=== PATIENT | male | born 1970 | race Caucasian/White ===

== ENCOUNTER 2024-06-17 18:02 | Emergency (ER) | payer BC, SELFPAY ==
[2024-06-17 18:11] VITALS: BP 92/50; BP 99/62; PULSE 82; PULSE 85; RESP 18; TEMP 36.9; O2SAT 100; O2SAT 99; BMI 19.0
[2024-06-17 18:17] VITALS: BP 92/50; PULSE 80; RESP 16; TEMP 36.9; O2SAT 98
--- NOTE | 2024-06-17 18:25 | ECG_ITS ---
Test Reason : HYPOTENSION Blood Pressure : / mmHG Vent. Rate : 076 BPM Atrial Rate : 076 BPM P-R Int : 138 ms QRS Dur : 086 ms QT Int : 406 ms P-R-T Axes : 077 074 080 degrees QTc Int : 456 ms Normal sinus rhythm Nonspecific ST abnormality Abnormal ECG No previous ECGs available Referred By: Isabelle White Electronically Signed By:Jean Avelar
--- NOTE | 2024-06-17 18:27 | PC.NURSE ---
[facility] potassium, mag, toradol and nictoine patch but due to low BP sent him here. EMS gave 300 mL NS via 18G in right forearm. Pt is alert and oriented, breathing even and unlabored, skin pale. 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 Chronic pain in back and hips due to slipped disc. Last drink this morning, half a pint. Hx of alcohol withdrawals, no seizures. Reports N/V, tremors and general malaise now. Denies SI or HI
[2024-06-17 19:41] LABS: Basophils Absolute Auto 0.1 X10*3/uL (0.0-0.2); Basophils Percent Auto 1.3 % (0-2); Eosinophils Absolute Auto 0.1 X10*3/uL (0.0-0.4); Eosinophils Percent Auto 2.2 % (0-4); Hematocrit 36.8 % (42.0-52.0); Hemoglobin 11.9 g/dl (14.0-18.0); Imm Gran Pct Auto 1.8 % (0.0-0.4); Lymphocytes Absolute Auto 1.8 X10*3/uL (1.2-4.9); Lymphocytes Percent Auto 32.1 % (20-40); MANUAL DIFF FLAG SCAN; Mean Corpuscular HGB Conc 32.3 g/dl (31.0-36.0); Mean Corpuscular Hemoglobin 34.4 pg (27.0-33.0); Mean Corpuscular Volume 106.4 fL (80.0-98.0); Mean Platelet Volume 8.9 fL (9.4-12.4); Monocytes Absolute Auto 0.4 X10*3/uL (0.1-1.2); Monocytes Percent Auto 7.5 % (2-11); Neutrophils Percent Auto 55.1 % (45-73); Platelet Count 392 X10*3/uL (160-400); Red Blood Count 3.46 X10*6/uL (4.60-5.80); Red Cell Distribution Width 15.3 % (11.0-16.0); SCAN SMEAR FLAG 1; White Blood Count 5.5 X10*3/uL (4.8-10.8)
[2024-06-17 19:42] LABS: Appearance Urine Clear; Color Urine Dark Yellow; Glucose Urine UA Negative (Negative); Leukocyte Esterase Urine Negative (Negative); Nitrite Urine Negative (Negative); PH 5.5 (5.0-9.0); Specific Gravity - Urine >= 1.030 (1.005-1.025); Urine Blood Negative (Negative); Urine Ketones 15 mg/dL (Negative); Urine Protein Trace mg/dL (Neg-Trace)
[2024-06-17 19:58] LABS: Alanine Aminotransferase 14 U/L (0-40); Albumin Level 2.8 g/dL (3.5-5.0); Alkaline Phosphatase 79 U/L (39-117); Anion Gap 18 (12-20); Aspartate Amino Transferase 39 U/L (5-37); Bilirubin Total 0.2 mg/dL (0.0-1.0); Blood Urea Nitrogen 5 mg/dL (9-16); Calcium 8.1 mg/dL (8.4-10.2); Carbon Dioxide 17 mmol/L (22-29); Chloride 106 mmol/L (96-108); Creatinine Clr Calc Pharmacy 78.9; Estimated Glomerular Filt Rate > 60; Glucose Random 102 mg/dL (60-115); Magnesium 1.5 mg/dL (1.6-2.6); Potassium 3.5 mmol/L (3.3-5.1); Sodium 137 mmol/L (135-145); Total Protein 5.3 g/dL (6.5-8.0)
[2024-06-17 20:10] LABS: SLIDE REVIEW VERIFIED
[2024-06-17 20:16] VITALS: BP 108/68; PULSE 80; RESP 17; TEMP 37.3; O2SAT 99
[2024-06-17 20:23] LABS: Influenza A PCR NEGATIVE (Negative); Influenza B PCR NEGATIVE (Negative); Resp Syncy Virus RNA Qual PCR NEGATIVE (Negative); SARS COV2 PCR INHOUSE NEGATIVE (Negative)
[2024-06-17 21:40] VITALS: BP 93/53; PULSE 80; RESP 13; TEMP 37; O2SAT 100
[2024-06-17] MEDS: ondansetron HCL 4 MG/2 ML VIAL IVPUSH (22:35)
--- NOTE | 2024-06-17 22:57 | ED.GENADULT ---
HPI - General Adult General Chief complaint: General Medical Stated complaint: hypotension Time Seen by Provider: 06/17/24 22:57 Source: patient Mode of arrival: ambulatory Limitations: no limitations History of Present Illness ED Provider: ivanna MCCARTY narrative: Patient alcoholic with history of chronic back and PE on Eliquis was admitted to [facility] yesterday sent to detox with a blood pressure was in 90 s sent the patient here for management of chronic back pain and hypotension on arrival patient's blood pressure was 92/50 pulse rate of 82 asking for morphine for back not able to eat or drink much had last drink earlier today Related Data Allergies Allergy/AdvReac Type Severity Reaction Status Date / Time lisinopril AdvReac Angioedema Verified 06/17/24 18:19 Review of Systems Review of Systems: Yes all other systems are reviewed and are negative [facility] Social History Social History Alcohol intake: current Alcohol intake frequency: 3 or more drinks per day Alcohol type: hard liquor Smoked in Last 30 Days: Yes Use of substances other than those prescribed or required for medical reasons: Yes Substance Use Type: Crack/Cocaine and Marijuana Advance Directives: No Advance Directives Information Provided: No Physical Exam ED Vital Signs: Vital Signs - 24 hr 06/17/24 18:11 06/17/24 18:17 06/17/24 20:16 Temperature 98.4 F 98.4 F 99.2 F Pulse Rate 82 80 80 Respiratory Rate 18 16 17 Blood Pressure 92/50 L 92/50 L 108/68 Pulse Oximetry 99 98 99 Oxygen Delivery Method Room Air Room Air Room Air 06/17/24 21:40 06/18/24 01:24 06/18/24 04:19 Temperature 98.6 F 98.2 F 97.8 F Pulse Rate 80 71 78 Respiratory Rate 13 13 17 Blood Pressure 93/53 L 99/66 133/87 Pulse Oximetry 100 99 100 Oxygen Delivery Method Room Air Room Air Room Air 06/18/24 06:14 Temperature 98.7 F Pulse Rate 72 Respiratory Rate 18 Blood Pressure 127/83 Pulse Oximetry 97 Oxygen Delivery Method Room Air BMI result Body Mass Index 19.0 Appearance: Alert. Oriented X3. No acute distress. Tremulous and anxious Eyes: No pallor or icterus ENT: Pharynx normal. Oral Mucosa moist Neck: Normal inspection. Neck supple. CVS: Normal heart rate and rhythm. Pulses normal. Respiratory: No respiratory distress. Equal air entry bilateral, no wheezing/rales/rhonchi Abdomen: Soft and tenderness in epigastric area. Bowel sounds are present, no mass palpable, no CVA tenderness Skin: Skin warm and dry. Normal skin color. Normal skin turgor. Extremities: No lower extremity edema. No calf tenderness Neuro: Oriented X 3. Medications Administered Generic Name Dose Route Start Last Admin Trade Name Freq PRN Reason Stop Dose Admin Dextrose/Sodium Chloride 1,000 mls @ 125 mls/hr 06/17/24 23:15 06/18/24 00:05 D51/2ns IVCONT 125 mls/hr .Q8H KEY Administration Discontinued Medications Generic Name Dose Route Start Last Admin Trade Name Freq PRN Reason Stop Dose Admin Famotidine 20 mg 06/17/24 23:08 06/17/24 23:19 Famotidine/Pf 20 Mg/2 Ml Vial IVPUSH 06/17/24 23:09 20 mg ONCE ONE Administration Sodium Chloride 1,000 mls @ 999 mls/hr 06/17/24 22:59 06/18/24 01:24 Ns IV 06/17/24 23:59 Infused .Q1H1M ONE Infusion Magnesium Sulfate 2 gm in 50 mls @ 150 mls/hr 06/17/24 22:59 06/17/24 23:32 Magnesium Sulfate/H2o IV 06/17/24 23:18 Infused ONCE ONE Infusion Lorazepam 1 mg 06/17/24 23:08 06/17/24 23:19 Lorazepam 2 Mg/Ml Vial IVPUSH 06/17/24 23:09 1 mg ONCE ONE Administration Ondansetron HCl 4 mg 06/17/24 22:16 06/17/24 22:35 Ondansetron Hcl 4 Mg/2 Ml Vial IVPUSH 06/17/24 22:17 4 mg ONCE ONE Administration Oxycodone HCl 5 mg 06/18/24 05:50 06/18/24 06:39 Oxycodone Hcl Immed Release 5 Mg Tablet PO 06/18/24 05:51 5 mg ONCE ONE Administration Medical Decision Making Medical Decision Making MDM Narrative: Patient alcohol withdrawal with chronic back pain had transient low blood pressure improved after IV fluids medically cleared to go to detox Lab Data MDM Lab Attestation statement: I reviewed the patient's lab results. 06/17/24 19:34 06/17/24 19:34 Labs: Lab Results 06/17/24 06/17/24 06/18/24 Range/Units 19:34 23:03 06:13 WBC 5.5 (4.8-10.8) X10*3/uL RBC 3.46 L (4.60-5.80) X10*6/uL Hgb 11.9 L (14.0-18.0) g/dl Hct 36.8 L (42.0-52.0) % MCV 106.4 H (80.0-98.0) fL MCH 34.4 H (27.0-33.0) pg MCHC 32.3 (31.0-36.0) g/dl RDW 15.3 (11.0-16.0) % Plt Count 392 (160-400) X10*3/uL MPV 8.9 L (9.4-12.4) fL Immature Gran % (Auto) 1.8 H (0.0-0.4) % Neut % (Auto) 55.1 (45-73) % Lymph % (Auto) 32.1 (20-40) % [place] % (Auto) 7.5 (2-11) % Eos % (Auto) 2.2 (0-4) % Baso % (Auto) 1.3 (0-2) % Lymph # (Auto) 1.8 (1.2-4.9) X10*3/uL [place] # (Auto) 0.4 (0.1-1.2) X10*3/uL Eos # (Auto) 0.1 (0.0-0.4) X10*3/uL Baso # (Auto) 0.1 (0.0-0.2) X10*3/uL Abs Immat Gran (auto) 0.10 H (0.00-0.03) X10*3/uL Absolute Neuts (auto) 3.0 (2.0-8.3) x10*3/uL Absolute Nucleated RBC 0.000 (0.0-0.012) X10*3/uL Nucleated RBC % (auto) 0.0 (0.0-0.2) /100WBC Smear Tech's Comments VERIFIED Sodium 137 (135-145) mmol/L Potassium 3.5 (3.3-5.1) mmol/L Chloride 106 (96-108) mmol/L Carbon Dioxide 17 L (22-29) mmol/L Anion Gap 18 (12-20) BUN 5 L (9-16) mg/dL Creatinine 0.77 (0.5-1.4) mg/dL Estim Creat Clear Calc 78.9 Estimated GFR > 60 Random Glucose 102 (60-115) mg/dL Calcium 8.1 L (8.4-10.2) mg/dL Magnesium 1.5 L (1.6-2.6) mg/dL Total Bilirubin 0.2 (0.0-1.0) mg/dL AST 39 H (5-37) U/L ALT 14 (0-40) U/L Alkaline Phosphatase 79 (39-117) U/L Troponin I High Sens < 2.7 (<3.5-35.0) ng/L Total Protein 5.3 L (6.5-8.0) g/dL Albumin 2.8 L (3.5-5.0) g/dL Urine Color Dark Yellow Urine Appearance Clear Urine pH 5.5 (5.0-9.0) Ur Specific [place] >= 1.030 H (1.005-1.025) Urine Protein Trace (Neg-Trace) mg/dL Urine Glucose (UA) Negative (Negative) mg/dL Urine Ketones 15 (Negative) mg/dL Urine Blood Negative (Negative) Urine Nitrite Negative (Negative) Ur Leukocyte Esterase Negative (Negative) Urine Opiates Screen Not Detected (Not Detect) Ur Buprenorphine Scrn Not Detected (Not Detect) ng/mL Ur Oxycodone Screen Not Detected (Not Detect) ng/mL Urine Methadone Screen Not Detected (Not Detect) ng/mL Urine Fentanyl Screen Not Detected (Not Detect) Ur Barbiturates Screen Not Detected (Not Detect) Ur Phencyclidine Scrn Not Detected (Not Detect) Ur Amphetamines Screen Not Detected (Not Detect) U Benzodiazepines Scrn Not Detected (Not Detect) Urine Cocaine Screen Not Detected (Not Detect) U Marijuana (THC) Screen POSITIVE H (Not Detect) Influenza Type A (PCR) NEGATIVE (Negative) Influenza Type B (PCR) NEGATIVE (Negative) RSV RNA Qual (PCR) NEGATIVE (Negative) SARS-CoV-2 RNA (RT-PCR) NEGATIVE (Negative) Independent Interpretation I performed an independent interpretation of an: EKG Interpretation: Normal sinus rhythm heart rate 76 beats per minute normal intervals normal axis no acute STT wave changes no acute ischemia Discharge Plan Discharge Clinical Impression: Alcohol dependence, Chronic back pain Patient Disposition: Still a Patient Print Language: Somali
[2024-06-17] MEDS: Magnesium Sulfate/H2O 2 GM/50 ML PIGGYBACK IV (23:12)
[2024-06-17] MEDS: 0.9 % Sodium Chloride 1,000 ML 999 ML IV (23:12)
[2024-06-17] MEDS: Famotidine/PF 20 MG/2 ML VIAL IVPUSH (23:19)
[2024-06-17] MEDS: LORazepam 2 MG/ML VIAL 1 MG IVPUSH (23:19)
[2024-06-17 23:28] LABS: Troponin-I High Sensitivity < 2.7 ng/L (<3.5-35.0)
[2024-06-18] MEDS: Dextrose 5 % and 0.45 % NaCl 1,000 ML 125 ML IVCONT ×2 (00:05→08:35)
[2024-06-18 01:24] VITALS: BP 99/66; PULSE 71; RESP 13; TEMP 36.8; O2SAT 99
[2024-06-18 04:19] VITALS: BP 133/87; PULSE 78; RESP 17; TEMP 36.6; O2SAT 100
[2024-06-18 06:14] VITALS: BP 127/83; PULSE 72; RESP 18; TEMP 37.1; O2SAT 97
[2024-06-18 06:35] LABS: Amphetamine Screen Urine Not Detected (Not Detect); Barbiturates, Urine Not Detected (Not Detect); Benzodiazepines Screen Urine Not Detected (Not Detect); Buprenorphine Scr Not Detected (Not Detect); Cannabinoid Screen Urine POSITIVE (Not Detect); Cocaine Screen Urine Not Detected (Not Detect); Fentanyl, urine Not Detected (Not Detect); Methadone Screen, Urine Not Detected (Not Detect); Opiate Screen Urine Not Detected (Not Detect); Oxycodone Screen Urine Not Detected (Not Detect); Phencyclidine Screen Urine Not Detected (Not Detect)
[2024-06-18] MEDS: oxyCODONE HCl Immed Release 5 MG TABLET PO (06:39)
[2024-06-18 07:40] VITALS: BP 134/90; PULSE 85; RESP 16; TEMP 36.9; O2SAT 100
--- NOTE | 2024-06-18 07:47 | PC.NURSE ---
patient resting quietly in bed, respirations equal and unlabored, skin noted to be dry and intact. patient ciwa currently 15, states last drink was yesterday. states he normally drinks half pint to a pint of whiskey a day. VSS. patient has D5 .45%NS running at 125ml/hr.
[2024-06-18] MEDS: Apixaban 5 MG TABLET PO (08:12)
[2024-06-18] MEDS: Acetaminophen 325 MG TABLET 975 MG PO (08:12)
[2024-06-18] MEDS: Ondansetron ODT 4 MG TAB.RAPDIS TRANSLINGU (08:12)
[2024-06-18] MEDS: Lidocaine 4 % Patch ADH..PATCH 1 PATCH TRANSDERMA (08:12)
[2024-06-18] MEDS: LORazepam 1 MG TABLET 2 MG PO (08:12)
[2024-06-18] MEDS: Nicotine 21 MG PATCH.TD24 TRANSDERMA (08:35)
--- NOTE | 2024-06-18 09:49 | MHC.RECOVRN ---
Met with pt in ED20 after pt expressed interest in ATS. Pt had presented to the ED from [facility] due to low BP and abnormal labs, chronic alcohol use, poor PO intake, chronic back/hip pain. Pt sitting in bed, awake, alert, easily engages in conversation. Reports he had presented to [facility] for ATS, however, was sent to [facility] due to low BP. Pt has now been medically cleared and is looking to return to [place] ATS. Pt informs t/w he needs to go to [facility] due to their pain management program. Pt spoke with [facility] and was told someone from the [place] would be calling [facility] to obtain information related to pts medical clearance. T/w left voicemail with Kenia perinatal social worker, at [phone] ext [phone] in hopes of facilitating the transition. Pts RN aware someone will be calling the hospital. Pt denies other questions or concerns at this time. Will continue to follow.
[2024-06-18 10:42] VITALS: BP 140/89; PULSE 80; RESP 14; TEMP 37; O2SAT 100
--- NOTE | 2024-06-18 11:15 | PC.NURSE ---
patient ambulated to bathroom standby assist
[2024-06-18] MEDS: Morphine Sulfate Immed Release 15 MG TABLET PO (12:18)
[2024-06-18] MEDS: chlordiazePOXIDE HCl 25 MG CAPSULE PO (12:18)
[2024-06-18 12:33] VITALS: BP 133/90; PULSE 78; RESP 18; O2SAT 99
--- NOTE | 2024-06-18 13:19 | MHC.RECOVRN ---
After speaking further with Jennifer from [facility] and the patient, it was decided the pt would return home and follow up with providers. Pt reports he has a psychiatrist appt tomorrow, he has 4 days worth of Ativan at home. AUD is covered under mental health services through the [place], pt plans to speak with psychiatrist about this as well. [facility]. Discussed pts chronic pain, encouraged pt to make PCP appt to continue working towards a solution. Pt denies other questions or concerns for t/w. Discussed with ED provider and RN.
== END 2024-06-18 13:28 | disposition home or self-care (01) ==
PROVIDERS: Physician Assistant Medical; Emergency Provider Internal Medicine
DX: I95.9 Hypotension, unspecified (principal); F10.29 Alcohol dependence with unspecified alcohol-induced disorder; M54.9 Dorsalgia, unspecified; Z03.818 Encounter for observation for suspected exposure to other biological agents ruled out
CPT/HCPCS: 0241U; 80053; 80307; 81003; 83735; 84484; 85025; 93005; 96361; 96365; 96366; 96367; 96375; 99285; J2060; J2405; J3475

== ENCOUNTER → 2024-06-17 18:25 | Outpatient (BNV) | payer BC, OTHER, SELFPAY | PROVIDERS: Emergency Provider Internal Medicine; Visit Provider Internal Medicine Cardiovascular Disease | DX: I95.9 Hypotension, unspecified (principal); R94.31 Abnormal electrocardiogram [ECG] [EKG] | CPT/HCPCS: 93010 ==